=== PATIENT | female | born 1985 | race Two or more races ===

== ENCOUNTER 2019-12-30 10:00 | Day surgery (SDC) | payer OTHER ==
[~2019-12-30 10:00] MED LIST: SPRINTEC 28 DA1 EACH PO; SYNTHROID75 MCG PO
== END 2019-12-30 17:45 | disposition home or self-care (01) ==
LOC: CIR.AMB 10:00
PROVIDERS: ATTEND Colon & Rectal Surgery
DX: K64.8 Other hemorrhoids (principal); K64.4 Residual hemorrhoidal skin tags; Z20.828 Contact with and (suspected) exposure to other viral communicable diseases